=== PATIENT | female | born 1990 | race Caucasian/White ===

== ENCOUNTER 2020-06-04 06:27 | Day surgery (SDC) | payer BC, OTHER ==
[2020-05-28 11:14] LABS: BASOPHILS % (AUTO) 0.6 % (0.0-2.0); EOSINOPHILS # (AUTO) 0.4 K/uL (0-0.4); EOSINOPHILS % (AUTO) 4.9 % (0.0-4.0); HEMATOCRIT 38.7 % (36-48); HEMOGLOBIN 12.7 g/dL (12.0-16.0); LYMPHOCYTES # (AUTO) 3.1 K/uL (2.5-16.5); LYMPHOCYTES % (AUTO) 40.2 % (20.5-51.1); MEAN CORPUSCULAR HEMOGLOBIN 27 pg (27-31); MEAN CORPUSCULAR HGB CONC 33 g/dL (33-37); MEAN CORPUSCULAR VOLUME 81.5 fL (80-94); MONOCYTES # (AUTO) 0.5 K/uL (0.8-1.0); MONOCYTES % (AUTO) 6.3 % (1.7-9.3); NEUTROPHILS # (AUTO) 3.7 K/uL (1.8-7.7); PLATELET COUNT (AUTO) 361 K/uL (140-450); RED BLOOD CELL COUNT(AUTO) 4.75 MIL/uL (4.20-5.40); RED CELL DISTRIBUTION WIDTH 16.4 % (11.6-13.7); WHITE BLOOD COUNT (AUTO) 7.8 K/uL (4.8-10.8)
[2020-05-28 11:35] LABS: ALBUMIN 3.5 g/dL (3.4-5.0); ANION GAP 13.4 (8-16); CARBON DIOXIDE 25.9 mmol/L (21-32); CREATININE 0.5 mg/dL (0.6-1.3); POTASSIUM 4.3 mmol/L (3.5-5.1); TOTAL BILIRUBIN 0.5 mg/dL (0.0-1.0)
[~2020-06-04] VITALS: Ht 152.4 cm; Wt 81.6 kg
== END 2020-06-04 08:49 | disposition home or self-care (01) ==
LOC: MDS 06:27 → MMU 06:29 → MDS 08:49
PROVIDERS: ATTEND Obstetrics & Gynecology
DX: Z30.2 Encounter for sterilization (principal); Z88.0 Allergy status to penicillin; Z20.828 Contact with and (suspected) exposure to other viral communicable diseases; Z53.8 Procedure and treatment not carried out for other reasons
CPT/HCPCS: 36415; 80053; 81025; 84702; 85025; J7120; U0003

== ENCOUNTER 2020-06-11 07:03 | Day surgery (SDC) | payer OTHER ==
[~2020-06-11] VITALS: Ht 160 cm; Wt 83.0 kg
[2020-06-11] MEDS ORDERED: fentaNYL citrate 0.05 MG/ML VIAL ONE (11:03)
[2020-06-11] MEDS ORDERED: SEVOFLURANE 250 ML BTL INH ONE (11:03)
[2020-06-11] MEDS ORDERED: MEPERIDINE 25 MG/ML SYR ONE (11:03)
[2020-06-11] MEDS ORDERED: SUCCINYLCHOLINE CHLORIDE 200 MG/10 ML VIAL IVP ONE (11:03)
[2020-06-11] MEDS ORDERED: GLYCOPYRROLATE 0.2 MG/ML VIAL ONE (11:03)
[2020-06-11] MEDS ORDERED: DEXAMETHASONE 4 MG/ML VIAL ONE (11:03)
[2020-06-11] MEDS ORDERED: LIDOCAINE MPF 2% 100 MG/5 ML VIAL INJ ONE (11:03)
[2020-06-11] MEDS ORDERED: NEOSTIGMINE 1:1000 10 MG/10 ML VIAL ONE (11:03)
[2020-06-11] MEDS ORDERED: ROCURONIUM 50 MG/5 ML VIAL IV ONE (11:03)
[2020-06-11] MEDS ORDERED: PROPOFOL 200 MG/20 ML VIAL IV ONE (11:03)
[2020-06-11] MEDS ORDERED: KETOROLAC 30 MG/ML VIAL ONE (11:03)
[2020-06-11] MEDS ORDERED: ONDANSETRON 4 MG/2 ML VIAL ONE (11:03)
[2020-06-11] MEDS ORDERED: METOCLOPRAMIDE 10 MG/2 ML INJ VIAL ONE (11:03)
[2020-06-11] MEDS ORDERED: diphenhydrAMINE 50 MG/ML VIAL IVP PRN (12:00)
[2020-06-11] MEDS ORDERED: fentaNYL citrate 0.05 MG/ML VIAL IVP PRN (12:00)
[2020-06-11] MEDS ORDERED: MEPERIDINE 25 MG/ML SYR IVP PRN (12:00)
[2020-06-11] MEDS ORDERED: oxyCODONE/APAP 5/325 MG 1 TAB TAB PO PRN (12:00)
[2020-06-11] MEDS ORDERED: ONDANSETRON 4 MG/2 ML VIAL IVP PRN (12:00)
[2020-06-11] MEDS ORDERED: LACTATED RINGERS 1,000 ML IV SCH (12:00)
== END 2020-06-11 13:40 | disposition home or self-care (01) ==
LOC: MDS 07:03 → MMU 07:03 → MDS 13:40
PROVIDERS: ATTEND Obstetrics & Gynecology
DX: Z30.2 Encounter for sterilization (principal); Z88.0 Allergy status to penicillin; Z91.038 Other insect allergy status; Z20.828 Contact with and (suspected) exposure to other viral communicable diseases
CPT/HCPCS: 58670; 81025; J0330; J1100; J1885; J2001; J2175; J2405; J2704; J2710; J2765; J3010; J3490; U0003